=== PATIENT | female | born 1970 | race Caucasian/White ===

== ENCOUNTER 2017-10-19 13:54 | Emergency (ER) | payer MEDICAID, OTHER ==
--- NOTE | 2017-10-19 13:58 | EDPHY ---
H & P Time Seen by Provider: 10/19/17 13:58 Constitutional: Initial Vital Signs Temperature (C) 37 C 10/19/17 14:01 Heart Rate 75 10/19/17 14:01 Respiratory Rate 18 10/19/17 14:01 Blood Pressure 153/89 H 10/19/17 14:01 O2 Sat (%) 97 10/19/17 14:01 O2 Delivery Mode Room Air Allergies/Adverse Reactions: No Allergies [NKDA] Allergy (Verified 07/04/10 13:35) Medical Decision Making - Diagnostics Imaging Results: Imaging Impressions Head CT 10/19/17 14:09 Impression: There is no acute intracranial abnormality identified on this unenhanced CT evaluation. If there is further clinical concern regarding the patient's symptoms, MR imaging is suggested, if not otherwise contraindicated. Findings were discussed with Jose Juan Dias MD at 14:47, on 10/19/2017. Imaging: Discussed imaging studies w/ call center operator Radiologist, I viewed and interpreted images myself ED Course/Re-evaluation: CHIEF COMPLAINT: Headache HISTORY OF PRESENT ILLNESS: The patient is a 47 y/o female arriving with her complaining of a headache with visual symptoms and nausea onset Thursday night, 2 days ago. She's had waxing and waning headache since onset and describes seeing "dots and a blind spot" occasionally. She has associated nausea and dizziness and feels unstable, but denies weakness, paresthesias, speech difficulty, or confusion. She denies history of migraines or headaches like this. She tried some ibuprofen and Excedrin without resolution. No recent head trauma or illness. REVIEW OF SYSTEMS: A 10 point review of systems was performed and is negative with the exception of the elements mentioned in the history of present illness. PHYSICAL EXAM: HR, BP, O2 Sat, RR. Temp noted General Appearance: Alert, well hydrated, appropriate, and non-toxic appearing. Head: Atraumatic without scalp tenderness or obvious injury Eyes: Pupils equal, round, reactive to light and accommodation, EOMI, no trauma , no injection. Ears: Clear bilaterally, no perforation, normal landmarks Nose: Atraumatic, no rhinorrhea, clear. Throat: There is no erythema or exudates, no lesions, normal tonsils, mucus membranes moist. Neck: Supple, nontender, no lymphadenopathy. Respiratory: No retractions, no distress, no wheezes, and no accessory muscle use. Lungs are clear to auscultation bilaterally. Cardiovascular: Regular rate and rhythm, no murmurs, rubs, or gallops. Good capillary refill all extremities. Gastrointestinal: Abdomen is soft, nontender, non-distended, no masses, no rebound, no guarding, no peritoneal signs. Musculoskeletal: Normal active ROM of all extremities, atraumatic. Neurological: Alert, appropriate, and interactive. The patient has non-focal cranial nerves, motor, sensory, and cerebellar exam. Skin: No rashes, good turgor, no nodules on palpation. Past medical history: Hearing loss Past surgical history: Deviated septum repair, stapedectomies, parotidectomy Family history: Noncontributory Social history: at bedside. DIAGNOSTICS/PROCEDURES/CRITICAL CARE TIME: Head CT: negative DIFFERENTIAL DIAGNOSIS: The differential diagnosis for the patient's headache included but was not limited to subarachnoid hemorrhage, migraine headache, tension headache and infectious causes such as meningitis, pharyngitis and sinusitis. MEDICAL DECISION MAKING: This is a normally healthy 47 y/o female who presents with a 2-day history of waxing and waning headache, visual disturbance, and nausea. Her exam is unremarkable without focal deficits. Presentation is consistent with migraine, but she has no prior history of migraines so I have recommended neuroimaging to evaluate for causes. Plan for IV, head CT, and symptom management. 1L IV NS, 10mg IV Reglan, 25mg IV Benadryl, 30mg IV Toradol, and 10mg IV Decadron ordered. Reassessed patient and discussed findings. Head CT is negative. She is feeling completely improved after migraine cocktail. Neuro exam remains nonfocal. I've recommended follow up with neurologist this week for evaluation of migraines. Standard care and follow up instructions given. Return precautions discussed. She is comfortable with plan for discharge. - Data Points Medications Given: Discontinued Medications Dexamethasone (Decadron Injection) 10 mg IVP EDNOW ONE Stop: 10/19/17 14:07 Last Admin: 10/19/17 14:24 Dose: 10 mg Diphenhydramine HCl (Benadryl Injection) 25 mg IVP EDNOW ONE Stop: 10/19/17 14:07 Last Admin: 10/19/17 14:24 Dose: 25 mg Ketorolac Tromethamine (Toradol) 30 mg IVP ONCE ONE Stop: 10/19/17 14:08 Last Admin: 10/19/17 14:24 Dose: 30 mg Metoclopramide HCl (Reglan Injection) 10 mg IVP EDNOW ONE Stop: 10/19/17 14:07 Last Admin: 10/19/17 14:24 Dose: 10 mg Departure - Departure Disposition: Home, Routine, Self-Care Clinical Impression: Migraine Qualifiers: Migraine type: other Status migrainosus presence: without status migrainosus Intractability: not intractable Qualified Code(s): G43.809 - Other migraine, not intractable, without status migrainosus Condition: Good Instructions: Migraine Headache (ED) Additional Instructions: Follow up with neurologist in the next week to discuss migraine management. Return to the ED for severe pain, weakness or numbness on one side of your body , or other worsening of condition. Referrals: Chen Galan MD [Primary Care Provider] - As per Instructions Fady Yost MD [Medical Doctor] - As per Instructions Report Scribed for: Jose Juan Dias Report Scribed by: Tennille Kilpatrick Date of Report: 10/19/17 Time of Report: 14:09
[2017-10-19] MEDS ORDERED: DEXAMETHASONE 10 MG/ML VIAL IVP ONE (14:06)
[2017-10-19] MEDS ORDERED: METOCLOPRAMIDE 10 MG/2 ML VIAL IVP ONE (14:06)
[2017-10-19] MEDS ORDERED: KETOROLAC 30 MG/1 ML SDV IVP ONE (14:07)
[2017-10-19 15:10] VITALS: BP 122/68
== END 2017-10-19 15:08 | disposition home or self-care (01) ==
DX: G43.809 Other migraine, not intractable, without status migrainosus (principal)
CPT/HCPCS: 96374; J1100; J1200; J1885; J2765